=== PATIENT | female | born 1990 | race Two or more races ===

== ENCOUNTER 2022-05-14 18:15 | Emergency (ER) | payer MEDICAID ==
[~2022-05-14] VITALS: Ht 152.4 cm; Wt 63.2 kg
[2022-05-15 04:48] VITALS: BP 111/81
== END 2022-05-15 04:53 | disposition home or self-care (01) ==
LOC: ER 18:15
DX: D17.0 Benign lipomatous neoplasm of skin and subcutaneous tissue of head, face and neck (principal)

== ENCOUNTER 2023-07-11 22:07 | Emergency (ER) | payer MEDICAID ==
[~2023-07-11] VITALS: Ht 152.4 cm; Wt 70.0 kg
[2023-07-11] MEDS ORDERED: ALBUTEROL SULF 2.5 MG/0.5ML(0.5%) NEB SOLN NEB ONE (22:30)
[2023-07-11] MEDS ORDERED: IPRATROPIUM BROM 0.5 MG/2.5ML INH SOL NEB ONE (22:30)
[2023-07-11] MEDS ORDERED: METH4PAK PO (22:57)
[2023-07-11 23:10] VITALS: BP 110/60; TEMP 98.3
[2023-07-11 23:21] VITALS: PULSE 96; RESP 18; O2SAT 94
== END 2023-07-11 23:28 | disposition home or self-care (01) ==
LOC: ER 22:07
DX: J02.8 Acute pharyngitis due to other specified organisms (principal); Z98.890 Other specified postprocedural states; Z79.899 Other long term (current) drug therapy
CPT/HCPCS: 71045; 94640; 99283; J7644

== ENCOUNTER 2024-12-04 12:34 | Emergency (ER) | payer MEDICAID ==
[~2024-12-04] VITALS: Ht 152.4 cm; Wt 65.6 kg
[~2024-12-04 12:34] MED LIST: METH4PAK PO
[2024-12-04 15:55] LABS: Urine Bacteria FEW /hpf (None Seen); Urine Blood 2+ /uL (Negative); Urine Clarity Turbid (Clear); Urine Color Yellow (Yellow); Urine Mucus FEW (None Seen); Urine Protein, UAD TRACE (Negative); Urine Specific Gravity 1.023 (1.001-1.035); Urine Squamous Epithelial Cell FEW /hpf (<5); Urine Urobilinogen 2 mg/dL (Negative); Urine WBC 2 /HPF (0-5)
[2024-12-04 16:06] LABS: Rapid Strep A Screen-Throat Positive
--- NOTE | 2024-12-04 16:08 | ED.PDOC ---
History of Present Illness HPI Comments 34 year old female presents to the ED for the c/c of a Fall Injury. Pt states that she was tripped by her dog as she was walking 2xdays ago. Pt notes her pain has progressively worsened till today with no alleviating factors a this time. Pt also notes of inflamed tonsils, and left leg pain. Denies fever, SOB, chest pain, abdominal pain, nausea, vomiting, diarrhea, headache, or numbness/tingling of extremities. No other symptoms or modifying factors reported at this time. Patient is alert and oriented x4 and has a stable gait. Chief Complaint: Fall Injury Time Seen by MD: 15:58 Primary Care Provider: JORGE LUIS Reviewed Notes: Nurses Notes, Medications, Allergies Allergies: Coded Allergies: NO KNOWN ALLERGIES (Unverified , 05/14/22) Home Meds Active Scripts Ibuprofen (Ibuprofen) 600 Mg Tab, 1 TAB PO TID for 10 Days, #30 TAB 0 Refills Prov:JUANITA TRIPP [employer] OPERATOR HELPER 12/04/24 Methylprednisolone (Medrol Dosepak) 4 Mg New, 4 MG PO UD, #21 TAB UAD Prov:VALENTIN HEMPHILL MD 07/11/23 Information Source: Patient Mode of Arrival: Ambulatory Severity: Moderate Timing: Days Duration: Since onset, Days Prehospital treatment: None Past Medical History PAST MEDICAL HISTORY: Denies Surgical History: Cholecystectomy TIRE SPECIALIST History: Denies all TIRE SPECIALIST Hx Family History Family History: Family hx of DM Social History Smoker: Non-Smoker Alcohol: Denies ETOH Use Drugs: Denies Drug Use Lives In: Home Constitutional: denies: chills, diaphoresis, fatigue, fever, malaise, sweats, weakness, others EENTM: denies: blurred vision, double vision, ear bleeding, ear discharge, ear drainage, ear pain, ear ringing, eye pain, eye redness, hearing loss, mouth pain, mouth swelling, nasal discharge, nose bleeding, nose congestion, nose pain, photophobia, tearing, throat pain, throat swelling, voice changes, others Respiratory: denies: cough, hemoptysis, orthopnea, SOB at rest, shortness of breath, SOB with excertion, stridor, wheezing, others Cardiovascular: denies: chest pain, dizzy spells, diaphoresis, Dyspnea on exertion, edema, irregular heart beat, left arm pain, lightheadedness, palpitations, PND, syncope, others Gastrointestinal: denies: abdomen distended, abdominal pain, blood streaked bowels, constipated, diarrhea, dysphagia, difficulty swallowing, hematemesis, melena, nausea, poor appetite, poor fluid intake, rectal bleeding, rectal pain, vomiting, others Genitourinary: denies: abnormal vagina bleeding, burning, dyspareunia, dysuria, flank pain, frequency, hematuria, incontinence, pain, , vagina discharge, urgency, others Neurological: denies: dizziness, fainting, headache, left sided numbness, left sided weakness, numbness, paresthesia, pre-existing deficit, right sided numbness, right sided weakness, seizure, speech problems, tingling, tremors, weakness, others Musculoskeletal: reports: back pain, others (left leg pain); denies: gout, joint pain, joint swelling, muscle pain, muscle stiffness, neck pain Integumetry: denies: bruises, change in color, change in hair/nails, dryness, laceration, lesions, lumps, rash, wounds, others Allergic/Immunocompromised: denies: Difficulty Healing, Frequent Infections, Hives, Itching, others Hematologic/Lymphatic: denies: anemia, blood clots, easy bleeding, easy bruising, swollen glands, others Endocrine: denies: excessive hunger, excessive sweating, excessive thirst, excessive urination, flushing, intolerance to cold, intolerance to heat, unexplained weight gain, unexplained weight loss, others Psychiatric: denies: anxiety, bipolar disorder, depression, hopeless, panic disorder, schizophrenia, sleepless, suicidal, others All Other Systems: Reviewed and Negative Physical Exam General Appearance: No Apparent Distress, Normal HEENT: Normal ENT Inspection, Pharynx Normal, TMs Normal, Other (moist mucus memebranes, Uvula midline) Neck: Full Range of Motion, Non-Tender, Normal, Normal Inspection Respiratory: Chest Non-Tender, Lungs Clear, No Accessory Muscle Use, No Respiratory Distress, Normal Breath Sounds Cardiovascular: No Edema, No JVD, No Murmur, No Gallop, Normal Peripheral Pulses, Regular Rate/Rhythm Breast Exam: Deferred Gastrointestinal: No Organomegaly, Non Tender, No Pulsatile Mass, Normal Bowel Sounds, Soft Genitalia: Deferred Pelvic: Deferred Rectal: Deferred Extremities: No calf tenderness, Normal capillary refill, Normal inspection, No rmal range of motion, Non-tender, No pedal edema Musculoskeletal : Location: Left Extremity Location: Back (left sided paraspinal pain, upper, middle, and lower back pain) Apperance: Normal Neurologic: Alert, treating engineer II-XII nml as Tested, No Motor Deficits, Normal Affect, Normal Mood, No Sensory Deficits Cerebellar Function: Normal Reflexes: Normal Skin: Dry, Normal Color, Warm Lymphatic: No Adenopathy Was a procedure done? Was a procedure done?: No Differential Dx Considerations may include: strep throat, pharyngitis, viral X-Ray, Labs, Meds, VS Vital Signs Date Time Temp Pulse Resp B/P (MAP) Pulse Ox O2 Delivery O2 Flow Rate FiO2 12/04/24 16:50 98 16 98 Room Air 12/04/24 16:50 98.8 98 16 115/82 (93) 98 98.8 12/04/24 15:31 97.0 96 15 118/74 (89) 98 97.0 12/04/24 12:34 97.9 95 16 111/72 (85) 95 97.9 Lab Test 12/04/24 16:00 12/04/24 15:45 12/04/24 15:00 Range/Units White Blood Count 23.9 H 4.4-10.8 10^3/uL Red Blood Count 4.80 4.0-5.20 10^6/uL Hemoglobin 13.5 12.2-16.2 g/dL Hematocrit 40.4 36.0-46.0 % Mean Corpuscular Volume 84.1 80.0-100.0 fL Mean Corpuscular Hemoglobin 28.1 28.0-32.0 pg Mean Corpuscular Hemoglobin Concent 33.5 32.0-36.0 g/dL Red Cell Distribution Width 14.8 H 11.8-14.3 % Platelet Count 235 140-450 10^3/uL Mean Platelet Volume 8.3 6.9-10.8 fL Neutrophils (%) (Auto) 78.9 37.0-80.0 % Lymphocytes (%) (Auto) 13.3 10.0-50.0 % Monocytes (%) (Auto) 7.7 0.0-12.0 % Eosinophils (%) (Auto) 0.0 0.0-7.0 % Basophils (%) (Auto) 0.1 0.0-2.0 % Neutrophils # (Auto) 18.8 H 1.6-8.6 10 ^3/uL Lymphocytes # (Auto) 3.2 0.4-5.4 10 ^3/uL Monocytes # (Auto) 1.8 H 0-1.3 10 ^3/uL Eosinophils # (Auto) 0 0-0.8 10 ^3/uL Basophils # (Auto) 0 0-0.2 10 ^3/uL Nucleated Red Blood Cells 0.0 % Sodium Level 139 136-145 mmol/L Potassium Level 3.9 3.5-5.1 mmol/L Chloride Level 106 98-107 mmol/L Carbon Dioxide Level 25 20-31 mmol/L Anion Gap 8 5-15 Blood Urea Nitrogen 7 L 9-23 mg/dL Creatinine 0.76 0.550-1.02 mg/dL Glomerular Filtration Rate Calc 105 >90 mL/min BUN/Creatinine Ratio 9.2 L 10.0-20.0 Serum Glucose 129 H 74-106 mg/dL Calcium Level 9.1 8.7-10.4 mg/dL Group A Streptococcus Rapid Positive Urine Color Yellow Yellow Urine Clarity Turbid H Clear Urine pH 6.0 5.0-9.0 Urine Specific [place] 1.023 1.001-1.035 Urine Protein Trace H Negative Urine Ketones 1+ H Negative Urine Blood 2+ H Negative /uL Urine Nitrite Negative Negative Urine Bilirubin Negative Negative Urine Urobilinogen 2 H Negative mg/dL Urine Leukocyte Esterase Negative Negative /uL Urine RBC 9 0 - 4 /hpf Urine Microscopic WBC 2 0-5 /HPF Urine Squamous Epithelial Cells Few <5 /hpf Urine Bacteria Few H None Seen /hpf Urine Mucus Few None Seen Urine Glucose Normal Normal mg/dL Urine Test Negative Negative Current Medications Medications (Trade) Dose Ordered Sig/Eze Route Start Time Stop Time Status Last Admin Penicillin G Benzathine (Bicillin L-A) 1,200,000 units ONCE ONCE IM 12/04/24 16:30 12/04/24 16:31 DC 12/04/24 16:42 Ketorolac Tromethamine (Toradol Injection) 60 mg ONCE ONCE IM 12/04/24 16:30 12/04/24 16:31 DC 12/04/24 16:43 X-Ray, Labs, Meds, VS Comment 34 year old female presents to the ED for the c/c of a Fall Injury. Findings consistent w/ muscular injury. Exam/test findings consistent with strep throat infection. Advised to complete full course of prescribed antibiotics Encouraged fluid intake Acetaminophen to reduce pain/fever NSAIDs to reduce pain/fever Nonpharmacological recommendations given Warm salt water gargles Throat lozenges Humidified air Also advised to replace toothbrush after 3 days of antibiotic use, return to school after 24 hours of treatment (no longer contagious). Return precautions given Worsening pain Fevers past 48 hours after antibiotics Any neck pain, headache, vision issues, or other concerns Additional MDM Review of External, Non-ED records: External records reviewed. Discussion with independent historian (EMS, family) history obtained from the patient at bedside Chronic conditions affecting care: None Social determinants of health affecting care: None Consideration of admission (observation or admission): I considered escalation of care to admission for this patient, however given the reassuring workup, the patient is safe for outpatient management. Time of 1ST Reevaluation: 16:28 Reevaluation 1ST: Unchanged Patient Education/Counseling: Diagnosis, Treatment Family Education/Counseling: No Family Present Departure 1 Departure Time of Disposition: 16:25 Impression: Primary Impression: Strep throat Additional Impression: Myalgia Disposition: 01 HOME / SELF CARE / HOMELESS Condition: Fair e-Prescriptions Ibuprofen (Ibuprofen) 600 Mg Tab 1 TAB PO TID for 10 Days, #30 TAB 0 Refills Prov: JUANITA TRIPP NP 12/04/24 Critical Care Note Critical Care Time?: No Stability Stability form required: No Heart Score Heart Score: Heart Score Response (Comments) Value History N/A 0 EKG N/A 0 Age N/A 0 Risk Factors N/A 0 Troponin N/A 0 Total 0 I personally scribed for JUANITA TRIPP NP ([email or web address]) on 12/04/24 at 16:08. Electronically submitted by Jesus Andrade ([email or web address]). JUANITA TRIPP NP December 04, 2024 16:08
[2024-12-04] MEDS ORDERED: IBUP-1454 PO (16:25)
[2024-12-04 16:32] LABS: Basophils # (auto) 0 10 ^3/uL (0-0.2); Basophils % (auto) 0.1 % (0.0-2.0); Eosinophils # (auto) 0 10 ^3/uL (0-0.8); Hematocrit 40.4 % (36.0-46.0); Hemoglobin 13.5 g/dL (12.2-16.2); Lymphocytes # (auto) 3.2 10 ^3/uL (0.4-5.4); Lymphocytes % (auto) 13.3 % (10.0-50.0); Mean Corpuscular Hemoglobin 28.1 pg (28.0-32.0); Mean Corpuscular Hgb Conc. 33.5 g/dL (32.0-36.0); Mean Corpuscular Volume 84.1 fL (80.0-100.0); Monocytes # (auto) 1.8 10 ^3/uL (0-1.3); Monocytes % (auto) 7.7 % (0.0-12.0); Neutrophils # (auto) 18.8 10 ^3/uL (1.6-8.6); Neutrophils % (auto) 78.9 % (37.0-80.0); Platelet Count (auto) 235 10^3/uL (140-450); Red Cell Distribution Width 14.8 % (11.8-14.3); White Blood Cell 23.9 10^3/uL (4.4-10.8)
[2024-12-04] MEDS: PENICILLIN G BENZ 1,200,000 UNITS/2 ML SYRG IM ONE (16:42)
[2024-12-04] MEDS: KETOROLAC TROMETH 60MG/2ML VIAL IM ONE (16:43)
[2024-12-04 16:45] LABS: Chloride 106 mmol/L (98-107); Potassium 3.9 mmol/L (3.5-5.1); Sodium 139 mmol/L (136-145)
[2024-12-04 16:46] LABS: Anion Gap 8 (5-15); Carbon Dioxide 25 mmol/L (20-31)
[2024-12-04 16:47] LABS: Calcium 9.1 mg/dL (8.7-10.4)
[2024-12-04 16:50] VITALS: BP 115/82; PULSE 98; RESP 16; TEMP 98.8; O2SAT 98
[2024-12-04 16:51] LABS: BUN/Creatinine Ratio 9.2 (10.0-20.0)
[2024-12-04 16:52] LABS: Blood Urea Nitrogen 7 mg/dL (9-23); Glucose 129 mg/dL (74-106)
== END 2024-12-04 17:29 | disposition home or self-care (01) ==
LOC: EEVIPCON 12:37 → ER 12:37
DX: J02.0 Streptococcal pharyngitis (principal); M79.10 Myalgia, unspecified site; Z90.49 Acquired absence of other specified parts of digestive tract; Z79.1 Long term (current) use of non-steroidal anti-inflammatories (NSAID); Z79.899 Other long term (current) drug therapy
CPT/HCPCS: 36415; 80048; 81001; 81025; 85025; 87880; 96372; 99284; J0561; J1885